=== PATIENT | female | born 1950 | race Asian ===

== ENCOUNTER 2016-12-31 16:04 | Inpatient (IN) | payer MEDICARE, MEDICAID ==
[~2016-12-31] VITALS: Ht 152.4 cm; Wt 53.2 kg
[2016-12-31] MEDS ORDERED: hydrALAzine 20 MG/ML, 1ML ONE (16:50)
[2016-12-31 16:57] LABS: BLOOD UREA NITROGEN 24 mg/dL (7-18)
[2016-12-31] MEDS ORDERED: SODIUM CHLORIDE FLUSH 10ML SYR IVF ONE (17:00)
[2016-12-31] MEDS ORDERED: hydrALAzine 20 MG/ML, 1ML IV ONE (17:00)
[2016-12-31] MEDS ORDERED: MECLIZINE CHEWABLE 25 MG TAB PO ONE (17:30)
[2016-12-31 17:45] LABS: ASPARTATE AMINO TRANSFERASE 46 U/L (15-37)
[2016-12-31] MEDS ORDERED: INSULIN REGULAR 100 UNITS/ML, 3ML VIAL SQ-INSULIN ONE (19:00)
[2016-12-31] MEDS ORDERED: INSULIN REGULAR 100 UNITS/ML, 3ML VIAL ONE (19:35)
[2016-12-31] MEDS ORDERED: INSU100V13 SQ (23:27)
[2016-12-31] MEDS ORDERED: GABA300C10 PO (23:27)
[2016-12-31] MEDS ORDERED: ATOR20TA PO (23:27)
[2016-12-31] MEDS ORDERED: GLIP-142 PO (23:27)
[2016-12-31] MEDS ORDERED: LOSA50TA6 PO (23:27)
[2016-12-31] MEDS ORDERED: CARV6.2512 PO (23:27)
[2017-01-01] MEDS ORDERED: LOSARTAN 50MG TABLET PO ONE
[2017-01-01 00:34] LABS: IS PT STATUS REG ER OR PRE ER? YES
[2017-01-01] MEDS: ENOXAPARIN 40 MG/0.4 ML SQ SCH (04:00)
[2017-01-01] MEDS ORDERED: MECLIZINE CHEWABLE 25 MG TAB PO PRN (04:00)
[2017-01-01] MEDS ORDERED: ENOXAPARIN 40 MG/0.4 ML ONE (04:09)
[2017-01-01] MEDS ORDERED: hydrALAzine 20 MG/ML, 1ML ONE (04:09)
[2017-01-01] MEDS: hydrALAzine 20 MG/ML, 1ML IV PRN ×2 (04:18→13:11)
[2017-01-01 05:06] LABS: IS PT STATUS REG ER OR PRE ER? YES
[2017-01-01] MEDS ORDERED: INSULIN DETEMIR 40 UNIT SQ SCH (09:00)
[2017-01-01] MEDS ORDERED: GLIPIZIDE 20 MG PO SCH (09:00)
[2017-01-01] MEDS ORDERED: REGADENOSON 0.4 MG/5 ML SYRINGE ONE (10:03)
[2017-01-01 12:57] VITALS: BP 188/93
[2017-01-01] MEDS: CARVEDILOL 6.25 MG TABLET PO SCH (13:11)
[2017-01-01 13:55] LABS: IS PT STATUS REG ER OR PRE ER? NO
[2017-01-01 14:54] VITALS: BP 165/76
[2017-01-01 19:17] VITALS: BP 129/65
[2017-01-01] MEDS ORDERED: LOSARTAN 50MG TABLET PO SCH (21:00)
[2017-01-01] MEDS ORDERED: ATORVASTATIN 20 MG TABLET PO SCH (21:00)
[2017-01-01] MEDS: INSULIN DETEMIR 100 UNITS/ML, PEN SQ-INSULIN SCH (22:02)
[2017-01-02 02:48] VITALS: BP 168/73
[2017-01-02] MEDS: ENOXAPARIN 40 MG/0.4 ML SQ SCH (04:56)
[2017-01-02 05:27] LABS: ASPARTATE AMINO TRANSFERASE 32 U/L (15-37); BLOOD UREA NITROGEN 29 mg/dL (7-18)
[2017-01-02 07:49] VITALS: BP 161/74
[2017-01-02] MEDS: CARVEDILOL 6.25 MG TABLET PO SCH (07:50)
[2017-01-02] MEDS: INSULIN DETEMIR 100 UNITS/ML, PEN SQ-INSULIN SCH (07:52)
[2017-01-02] MEDS ORDERED: FENOFIBRATE 145 MG TABLET PO SCH (09:00)
[2017-01-02] MEDS ORDERED: FENO145T13 PO (11:16)
[2017-01-02] MEDS ORDERED: MECL-85 PO (11:16)
== END 2017-01-02 17:22 | disposition home or self-care (01) | DRG 305 ==
LOC: ED 21:00 → EDIP 01-01 00:54 → 5SO 01-01 13:04
PROVIDERS: ADMIT Internal Medicine; ATTEND Internal Medicine
DX: I16.0 Hypertensive urgency (principal); E44.1 Mild protein-calorie malnutrition; E11.649 Type 2 diabetes mellitus with hypoglycemia without coma; E78.1 Pure hyperglyceridemia; E78.5 Hyperlipidemia, unspecified; H54.7 Unspecified visual loss; I11.9 Hypertensive heart disease without heart failure; E11.65 Type 2 diabetes mellitus with hyperglycemia; I65.23 Occlusion and stenosis of bilateral carotid arteries; Z79.4 Long term (current) use of insulin; Z79.899 Other long term (current) drug therapy; Z82.3 Family history of stroke; Z82.49 Family history of ischemic heart disease and other diseases of the circulatory system; Z98.49 Cataract extraction status, unspecified eye
CPT/HCPCS: 36415; 70450; 70551; 71020; 78452; 80053; 80061; 81001; 82962; 83036; 83690; 84443; 84478; 84484; 85025; 85379; 93005; 93017; 93306; 93880; 96372; 96374; J1650; J2785; A9502; C9898; J0360; J1815